=== PATIENT | female | born 1935 | race Caucasian/White ===

== ENCOUNTER 2019-12-15 00:23 | Inpatient (IN) | payer OTHER ==
[~2019-12-15] VITALS: Ht 162.6 cm; Wt 82.1 kg
[2019-12-15] VITALS (33 sets, daily range): BP systolic 91–163; BP diastolic 24–84
[2019-12-15 05:00] LABS: HEMATOCRIT 30.5 % (37.0-47.0); HEMOGLOBIN 9.9 gm/dL (12.0-15.0); MCH 32.2 pg (26.0-34.0); MCHC 32.3 g/dL (28.0-37.0); MCV 99.9 fL (80.0-100.0); RBC 3.06 mil/uL (4.20-5.00); RDW 15.5 % (10.5-14.5); WBC 11.7 thou/uL (4.0-11.0)
[2019-12-15 05:16] LABS: CALCIUM 8.5 mg/dL (8.5-10.1); CREATININE 1.7 mg/dL (0.6-1.0); POTASSIUM 4.6 mmol/L (3.5-5.1)
[2019-12-15 05:21] LABS: ALBUMIN 2.1 g/dL (3.4-5.0); TOTAL BILIRUBIN 0.4 mg/dL (0.2-1.0); TOTAL PROTEIN 6.5 g/dL (6.4-8.2)
--- NOTE | 2019-12-15 07:59 | NUR ---
RECEIVED PT DIRECT ADMIT TO ICU 245. PT LETHARGIC, ABLE TO AWAKEN TO QUESTIONS AND FOLLOW COMMANDS. ORIENTED ONLY TO SELF, AND DENIED ANY PAIN, AFEBRILE, APPEARED TO HAVE CHILLS. BLANKET ON. ST. BP THIS AM TRENDING LOWER-LEVOPHED STARTED TO KEEP MAP >65. GOOD UO-- 2.5L OF FLUID GIVEN AT [place]. ABX GIVEN ORDERED. CONT PLAN OF CARE
--- NOTE | 2019-12-15 09:36 | NUR ---
WOUND CONSULT; BILATERAL LE S/S CONSISTANT WITH CELLULITIS. HOT TO TOUCH, EDMATOUS, ERYTHEMA BILATERALLY. THE PANNOUS/GROIN ARE ESCORIATED AND RED THE RIGHT BUTTOCKS IS A STAGE 2, AND THE COCCYX IS A STAGE 2. SMALL AMOUNT OF SEROUS DRAINAGE TO BOTH. NONE ODOROUS. RECOMMENDATIONS; 1-INTERDRY TO PANNOUS/GROIN 2-RIGHT BUTTOCKS AND COCCYX; LINDSEY BID/PRN RN PRESENT
--- NOTE | 2019-12-15 10:53 | NUR ---
chart review. unable to visit with tereza rt in icu. cm spoke with pt daughter frantz via phone call, she was just arriving to visit. intro to cm and dcp. frantz reported lives at [facility], she was just at [facility] 5-6 weeks ago for similar things. she uses wheel chair. has prn o2 and btx if needed at [facility], she is still able to feed her self. has assistance with bathing and dressing. been to [facility] for wound care. thank you for calling per daughter frantz. will cont following as needed for dc needs.
--- NOTE | 2019-12-15 11:27 | NUR ---
1100 - DAUGHTER VISITED THE PATIENT AND SHE AND THE PATIENT WERE UPDATED AND EDUCATED ON THE PATIENT'S CONDITION AND PLAN OF CARE.
--- NOTE | 2019-12-15 16:05 | NUR ---
ASSUMED CARE AT 0700. AFEBRILE. ADEQUATE UOP. NO BM. LEVOPHED GTT IN PLACE. PATIENT WAS ABLE TO EAT TODAY. DEEP TISSUES INJURIES ON COCCYX AND RIGHT BUTTOCKS WERE VISUALIZED AND TREATED NURSE ON WOUND CARE TEAM. PATIENT PROGRESSING TOWARDS THE PLAN OF CARE.
[2019-12-16] VITALS (36 sets, daily range): BP systolic 65–132; BP diastolic 30–103
[2019-12-16 06:31] LABS: BASOPHILS 0.3 % (0.0-2.0); EOSINOPHILS 3.1 % (0.0-3.0); HEMATOCRIT 26.9 % (37.0-47.0); HEMOGLOBIN 8.9 gm/dL (12.0-15.0); LYMPHOCYTES 18.9 % (24.0-44.0); MCH 32.8 pg (26.0-34.0); MCHC 33.1 g/dL (28.0-37.0); MCV 98.9 fL (80.0-100.0); MONOCYTES 10.1 % (1.0-8.0); PLATELET COUNT 106 thou/uL (150-400); POLYS 67.6 % (36.0-66.0); RBC 2.72 mil/uL (4.20-5.00); WBC 11.9 thou/uL (4.0-11.0)
[2019-12-16 06:36] LABS: CALCIUM 8.7 mg/dL (8.5-10.1); CREATININE 1.4 mg/dL (0.6-1.0); POTASSIUM 4.1 mmol/L (3.5-5.1); TOTAL BILIRUBIN 0.2 mg/dL (0.2-1.0); TOTAL PROTEIN 5.8 g/dL (6.4-8.2)
[2019-12-16] MEDS ORDERED: ASPIRIN EC81 M1 PO (11:43)
[2019-12-16] MEDS ORDERED: ATROVENT HFA14 GM INH (12:02)
[2019-12-16] MEDS ORDERED: LIPITOR 20 MG T20 M1 PO (12:02)
[2019-12-16] MEDS ORDERED: CEPACOL SORE T1 EACH PO (12:03)
[2019-12-16] MEDS ORDERED: DULCOLAX STOOL100 M1 PO ×2 (12:04→12:06)
[2019-12-16] MEDS ORDERED: CELEXA 20 MG TA20 MG PO (12:04)
[2019-12-16] MEDS ORDERED: IRON325 M1 PO (12:07)
[2019-12-16] MEDS ORDERED: ADULT WAL-100 MG/5 M PO (12:09)
[2019-12-16] MEDS ORDERED: LEVEMIR100 UNIT/1 SUBQ (12:09)
[2019-12-16] MEDS ORDERED: MAG-OXIDE400 MG PO (12:11)
[2019-12-16] MEDS ORDERED: NAMENDA XR14 MG PO (12:12)
[2019-12-16] MEDS ORDERED: LEVO-T75 MCG PO (12:12)
[2019-12-16] MEDS ORDERED: MULTI VITAMIN1 EACH PO (12:13)
--- NOTE | 2019-12-16 12:32 | NUR ---
1030- PT GOT UP TO CHAIR WITH ASSISTANCE FROM PT. PT ALERT TO SELF BUT CONFUSED TO TIME PLACE AND SITUATION. PT REQUESTING TO GO HOME AND STATES SHE IS BETTER AND DOES NOT NEED TO BE IN THE HOSPITAL. PT PULLED OFF PIPE SUPERVISOR LEADS AND O2.RN CALLED PT'S DAUGHTER LOURDES AND PHONE WAS BROUGHT INTO PT'S ROOOM SO PT COULD TALK TO HER DAUGHTER. AFTER CALL PT REMAINS CONFUSED. 1130 PT'S DAUGHTER ARRIVED AND IS SITTING AND VISITING WITH PT. PT APPEARS LESS ANXIOUS WITH DAUGHTER PRESENT AND AGREES TO HAVE O2 ON AND PIPE SUPERVISOR LEADS ON. DAUGHTER IS CHAIRSIDE FEEDING PT LUNCH.
[2019-12-16] MEDS ORDERED: BENGAY GREASELE57 GM TOP (13:54)
[2019-12-16] MEDS ORDERED: NOVOLOG100 UNIT/1 SUBQ ×2 (13:55→14:00)
[2019-12-16] MEDS ORDERED: OMEPRAZOLE 20 M20 M1 PO (14:00)
[2019-12-16] MEDS ORDERED: POTASSIUM20 PO (14:02)
[2019-12-16] MEDS ORDERED: OXYBUTYNIN 5 MG5 M2 PO (14:02)
[2019-12-16] MEDS ORDERED: REMERON15 M2 PO (14:05)
[2019-12-16] MEDS ORDERED: PREGABALIN50 MG PO (14:05)
[2019-12-16] MEDS ORDERED: TRAZODONE HCL50 MG PO (14:06)
[2019-12-16] MEDS ORDERED: TYLENOL325 MG PO (14:07)
[2019-12-16] MEDS ORDERED: TRAMADOL 50 MG50 MG PO (14:07)
[2019-12-16] MEDS ORDERED: VITAMIN C500 M1 PO (14:08)
[2019-12-16] MEDS ORDERED: VITAMIN D325 MC1 PO (14:09)
--- NOTE | 2019-12-16 15:05 | NUR ---
FAXED CLINICAL UPDATE TO [facility] RECEIVED CONFIRMATION AND LEFT MSG WITH RUTHIE IN ADM. DP TO FOLLOW.
[2019-12-16 22:38] LABS: URINE BILIRUBIN NEGATIVE (Negative); URINE BLOOD 1+ (Negative); URINE CLARITY SL CLOUDY; URINE COLOR YELLOW; URINE GLUCOSE-RANDOM* NEGATIVE (Negative); URINE KETONES NEGATIVE (Negative); URINE NITRITE-REFLEX NEGATIVE (Negative); URINE PROTEIN (DIPSTICK) NEGATIVE (Negative); URINE SPECIFIC GRAVITY 1.015 (1.005-1.035); URINE UROBILINOGEN 0.2 E.U./dl (0.2-1.0)
--- NOTE | 2019-12-16 23:00 | NUR ---
PT AGITATED AND PICKING AT MONITOR LEADS. TRAZADONE 50 MG GIVEN PER ORDER PT IS NORMALLY OMN THIS MED AT THE [facility].
[2019-12-16 23:33] LABS: SQUAMOUS 0-3 Few /LPF (0-3); URINE LEUKOCYTES-REFLEX 3+ (Negative)
[2019-12-16 23:34] LABS: BACTERIA-REFLEX 1-9 Few /HPF (None Seen); CASTS None Seen /LPF (None Seen); CRYSTALS None Seen /LPF (None Seen); MUCUS 0-3 Light strn/LPF (None Seen); URINE RBC 3-10 Few /HPF (0-2); URINE WBC-REFLEX >25 Many /HPF (0-5); WBC CLUMPS Moderate (None Seen)
[2019-12-17] VITALS (17 sets, daily range): BP systolic 99–132; BP diastolic 41–76
--- NOTE | 2019-12-17 06:00 | NUR ---
PT HAD 2 MOD BROWNB STOOLS TONIGHT
--- NOTE | 2019-12-17 06:00 | NUR ---
PT IS MUCH CALMER NOW AND COOPERATIVE. WANTS A PEPSI. TEMP 99.2 POI 1800 CC UO THIS SHIFT. LEVOPED GTT TITRASTED OFF AT 0001. BATHED WILL CONT TO MONITOR
--- NOTE | 2019-12-17 18:09 | NUR ---
ALERT AND ORIENTED BUT FORGETFUL, VITALS STABLE. UP TO THE CHAIR WITH P.T. AND TOLERATED WELL. TOLERATING DIET W/O NAUSEA. SANDY HOFF'D PER ORDER. ORDERS TO TRANSFER TO [place] RECEIVED AND REPORT CALLED TO IWONA TREVINO ON 4S PATIENT'S DAUGHTER LOURDES NOTIFIED OF ROOM CHANGE VIA PHONE. PATIENT WILL BE TRANSFERRED TO 445.
--- NOTE | 2019-12-17 21:59 | NUR ---
1900 ASSUMED CARE OF PT AFTER REPORT FROM IWONA TREVINO. 2029 PT BACK TO BED WITH 2 ASSIST, STANDS SLOWLY. BASELINE ASSESSMENT COMPLETED, PT PLACED ON CONT PULSE OXIMETRY BECAUSE FORGETFUL AND REMOVES O2, ORIENTED X 2-3 BUT FORGETFUL, CLOSE TO NURSES STATION, FALL PRECAUTIONS IN PLACE. WILL CONTINUE TO MONITOR
[2019-12-18 04:09] VITALS: BP 142/63
[2019-12-18 06:18] LABS: HEMATOCRIT 27.6 % (37.0-47.0); HEMOGLOBIN 9.2 gm/dL (12.0-15.0); MCH 32.6 pg (26.0-34.0); MCHC 33.2 g/dL (28.0-37.0); MCV 98.3 fL (80.0-100.0); RBC 2.81 mil/uL (4.20-5.00); RDW 14.6 % (10.5-14.5); WBC 6.6 thou/uL (4.0-11.0)
[2019-12-18 06:34] LABS: CALCIUM 8.9 mg/dL (8.5-10.1); CREATININE 1.1 mg/dL (0.6-1.0); POTASSIUM 3.5 mmol/L (3.5-5.1)
[2019-12-18 08:16] VITALS: BP 117/75
--- NOTE | 2019-12-18 18:23 | NUR ---
PT CARE ASSUMED AT 0700. A&Ox3. FORGETFUL. DAILY WEIGHT (CHF) PT MEDICALLY STABLE TO DISCHARGE. AWAITING CULTURE& SENSATIVITY TO SWITH IV ANTIBIOTICS TO PO TO RETURN TO SKILLED. URINE (12/18) BLOOD (12/20) CALL . IV PATENT WITH NO REDNESS OR EDEMA. DAUGHTER AT [facility]. 3L O2 ON 2-4L ON HOME OXYGEN. BILATERAL VASCULAR EDEMA. UP WITH ONE ASSIST TO THE RECLINER. LOW AIRLOSS PUMP. FALL PROTOCOL IN PLACE. CALL LIGHT IN REACH WILL CONTINUE TO MONITOR.
[2019-12-18 20:34] VITALS: BP 110/52
--- NOTE | 2019-12-19 04:33 | NUR ---
PATIENT ALERT AND ORIENTED X1-2. SITTING IN CHAIR AT BEGINNING OF SHIFT AND HELPED TO BED WITH TWO MAX ASSIST AND A WALKER PATIENT IS WEAK. BS MONITORED PER ORDER. GIVEN TYLENOL FOR SHOULDER PAIN PER GRANDDAUGHTER WHO WAS AT HER BEDSIDE (EMPLOYEE) FOR A SHORT PERIOD OF TIME. PATIENT HAS PERIODS OF CONFUSION, HOWEVER, COOPERATIVE WITH CARE. 02NC OFF AND ON PER PATIENT. BS MONITORED PER ORDER, NO INSULIN NEEDED AT 2100. INCONTINENT OF MEDIUM BM AND URINE. RESTING QUIETLY AT TIME OF NOTE. WILL MONITOR.
[2019-12-19 08:41] VITALS: BP 138/63
--- NOTE | 2019-12-19 13:11 | NUR ---
Assumed care of pt at 0700. Pt very sleepy this am. 3L O2. Incontinent b&b. Setup for meals. Denies pain. Q2h turn. IV antibiotic infusing. Call light within reach. Fall precuations in place. Will continue to monitor.
[2019-12-19 16:30] VITALS: BP 130/66
[2019-12-19 22:29] VITALS: BP 141/73
--- NOTE | 2019-12-20 03:32 | NUR ---
PATIENT ALERT TO SELF WITH CONFUSION AT TIMES. COOPERATIVE WITH CARE. 02NC 3L, HOWEVER, PATIENT REMOVES FREQUENTLY. BS MONTORED PER ORDER. INCONTINENT OF B/B. BREAKDOWN ON BUTTOCKS, CREAM APPLIED. REDNESS TO FOLD OF PANUS WITH INTERDRY IN PLACE. POSSIBLE D/C IN AM. WILL MONITOR.
[2019-12-20 07:45] VITALS: BP 136/68
[2019-12-20 16:00] VITALS: BP 133/72
--- NOTE | 2019-12-20 16:20 | NUR ---
Assumed care of pt at 0700. Pt alert but forgetful. Denies pain. Up to the chair. Zguard appplied to buttocks area. Q2h turn. Incontinent of b&b. Call light within reach. Family ay bedside. Fall precautions in place. Will continue to monitor.
[2019-12-20 21:25] VITALS: BP 103/56
--- NOTE | 2019-12-21 04:17 | NUR ---
PATIENT ALERT AND ORIENTED TO SELF. CONFUSED AT BEGINNING OF SHIFT, HOWEVER, EASILY REORIENTED. BS MONITORED PER ORDER AND INSULIN GIVEN PER S/S. PATIENT WAS NOT ON 02 DURING THE DAY SHIFT, HOWEVER, REQUIRED 2LNC FOR O2SAT OF 91% INCONTINENT OF URINE X2. POSSIBLE TRANSFER TO [facility]. EDEMA REMAINS TO LOWER EXTREMETIES AND RIGHT WRIST. CREAM PLACED ON BUTTOCK PER ORDER. RESTING QUIETLY. WILL MONITOR.
[2019-12-21 08:02] VITALS: BP 131/58
[2019-12-21] MEDS ORDERED: MONUROL3 GM PO (13:03)
--- NOTE | 2019-12-21 13:54 | NUR ---
WOUND CARE F/U; F/U TODAY RE; LEFT BUTTOCKS AND POSSIBLE DTI. THE DTI IS STABLE THE LEFT BUTTOCKS REMAINS OPEN BUT IMPROVING. THERE IS NO S/S OF INFECTION AND THE PATIENT DENIES PAIN TO THE AREA. RECOMMENDATIONS; CONTINUE CURRENT POC
--- NOTE | 2019-12-21 14:56 | NUR ---
ON-GOING ASSESSMENT: CM REVIEWED CHART. PER ID NOTE PATIENT REMAINS ON IV ANBX AND CURRENTLY ON MERREM PENDING CULTURES. IF POSSIBLE PATIENT MAY NEED TO GO ON FOSFOMYCIN IF FACILITY IS ABLE TO DO THAT. CM FAXED UPDATED CLINICAL TO [facility] AND LEFT VM WITH ADMISSIONS TO CHECK ON ANBX. CM WILL CONTINUE TO FOLLOW TO ASSIST NEEDED. CM ALSO REQUESTED FOR A COVID TEST TO BE ORDERED. AWAITING CALL BACK FROM [facility] AT THIS TIME.
--- NOTE | 2019-12-21 16:14 | NUR ---
FAXED CLINICAL UPDATE TO [facility] RECEIVED CONFIRMATION AND LEFT MSG WITH JOSE ANGEL IN ADM.
--- NOTE | 2019-12-21 16:52 | NUR ---
PT ASSESSED AT START OF SHIFT. PT ALERT BUT FORGETFUL. PLEASANT AND COOPERATIVE W/ CARES. INCONTINENT OF LARGE AMTS OF URINE. EATING AND DRINKING FAIR-NEEDS HELP W/ MEALS. THERAPY IN THIS AFTERNOON. IV ANTIBIOTIC CHANGED. SLEPT OFF AND ON DURING SHIFT. DTR CALLED TO CHECK ON PT FOR UPDATE. AWAITING BLOOD CULTURE SENSITIVITIES.
--- NOTE | 2019-12-22 01:00 | NUR ---
PT IS ALERT TO SELF. CONFUSED AND FORGETFUL. INCONTINENT. REQUIRES HELP TO REPOSITION IN BED THRO THE NOC.AFEBRILE. SWALLOWS MEDS OK. CONTINUES ON IV ABTS.FALL PREC IN PLACE.
[2019-12-22 04:20] VITALS: BP 121/66
--- NOTE | 2019-12-22 11:17 | NUR ---
on-going assessment: cm reviewed cHART AND RECEIVED A CALL BACK FROM JOSE ANGEL AT [facility] WHO REPORTS THEY HAVE FOSFOMYCIN PO FORM IN A THREE PACK THEY COULD PROVIDE PATIENT IF NEEDED. IF PATIENT IS NEEDING IV ANBX AT DISCHARGE THEY REQUEST A PICC. CM STILL AWAITING FINAL RECS FOR IV ANBX PENDING BLOOD CULTURES. CM NOTIFIED BEDSIDE RN. CM WILL CONTINUE TO FOLLOW TO ASSIST NEEDED.
--- NOTE | 2019-12-22 18:20 | NUR ---
PT CARE ASSUMED AT 0700. A&Ox3. CONFUSSION. PT UP TO THE SIDE OF THE BED FOR ALL MEALS. EPISODES OF IMPULSIVENESS. IV PATENT WITH NO REDNESS OR EDEMA. SALINE LOCKED. IV ANTIBIOTICS. AWAITING CLARIFICATION FROM DR. LOBO OF FINAL DECISSION ON ANTIBIOTICS SO PT CAN RETURN TO FACILITY. WOUND CARE COMPLEETE. PT STARTING TO BE IMPULSIVE AT 1700. LETTING PT SIT AT THE EDGE OF THE BED WITH CLOSE OBSERVATION. FALL PROTOCOL IN PLACE. CALL LIGHT IN REACH. WILL CONTINUE TO MONITOR.
[2019-12-22 19:15] VITALS: BP 141/60
[2019-12-23 02:02] VITALS: BP 141/60
--- NOTE | 2019-12-23 02:33 | NUR ---
PT CARE ASSUMED WITH PT SITTING AT THE BED SIDE RELAXING.PT IS ALERT AND ORIENTED.PT IS FORGETFUL.PT IS X1 ASSIST TO BEDSIDE COMMODE.PT IS ACCUCHECK ACHS WITH LOW SSI.IV ACCESS ON LFA.PT IS ON O2 2L NC.FALL PRECAUTIONS IN PLACE.WILL CONTINUE TO MONITOR
[2019-12-23 03:43] VITALS: BP 110/44
[2019-12-23] MEDS ORDERED: MIRALAX17 GM PO (11:35)
[2019-12-23] MEDS ORDERED: PEPCID20 MG PO (11:35)
--- NOTE | 2019-12-23 12:13 | NUR ---
PT CARE ASSUMED AT 0700. A&Ox3. CONFUSED BUT NONIMPULSIVE. PT UP TO THE BEDSIDE COMMODE. IV PATENT WITH NO REDNESS OR EDEMA. WOUND PICTURES TAKEN. IV REMOVED. NO PAIN NOTED. FALL PROTOCOL IN PLACE. CALL LIGHT IN REACH. WILL CONTINUE TO MONITOR.
--- NOTE | 2019-12-23 13:14 | NUR ---
ON-GOING ASSESSMENT: DISCHARGE TO [facility] TODAY. CM REVIEWED CHART. ID LEFT A SCRIPT FOR FOSFOMYCIN ON CHART AND CM FAXED THIS TO [facility] AND LEFT A VM FOR JOSE ANGEL TO CALL CM BACK MICHELE TO SEE IF THEY CAN ACCEPT THE PATIENT ON THIS MEDICATION AND IF SO SHE CAN DISCHARGE BACK TODAY. CM RECEIVED A CALL FROM JOSE ANGEL WHO REPORTS SHE RECEIVED THE SCRIPT AND THEIR PHARMACY DOES HAVE THAT MEDICATION AND THEY CAN PROVIDE THAT TO HER AND SHE CAN DISCHARGE BACK TO [facility] TODAY. CM NOTIFIED PATIENT AND HER GRANDDAUGHTER WHO WAS AT THE BEDSIDE. CM ALSO CONTACTED PATIENTS DAUGHTER LOURDES. CM NOTIFIED BEDSIDE RN AND PROVIDED HER WITH THE NUMBER FOR REPORT. CHART COPY WAS ORDERED AND DIRECTORY COMPILER AWARE. CM FAXED D/C ORDERS TO [facility] WITH NEGATIVE COVID TEST AND CONFIRMED THEY RECEIVED IT. TRANSPORTATION HAS BEEN ARRANGED FOR [phone]. BEDSIDE RN AWARE WELL PATIENTS DAUGHTER. CASE CLOSED.
== END 2019-12-23 16:26 | DRG 871 ==
LOC: ICU 00:23 → 4S 12-17 18:42
PROVIDERS: Nurse Practitioner Family; Specialist; ADMIT Hospitalist; ATTEND Hospitalist
DX: A41.51 Sepsis due to Escherichia coli [E. coli] (principal); R65.21 Severe sepsis with septic shock; L03.116 Cellulitis of left lower limb; N17.9 Acute kidney failure, unspecified; N12 Tubulo-interstitial nephritis, not specified as acute or chronic; E44.0 Moderate protein-calorie malnutrition; I13.0 Hypertensive heart and chronic kidney disease with heart failure and stage 1 through stage 4 chronic kidney disease, or unspecified chronic kidney disease; J44.9 Chronic obstructive pulmonary disease, unspecified; K21.9 Gastro-esophageal reflux disease without esophagitis; I25.10 Atherosclerotic heart disease of native coronary artery without angina pectoris; E66.9 Obesity, unspecified; N18.2 Chronic kidney disease, stage 2 (mild); K59.00 Constipation, unspecified; E03.9 Hypothyroidism, unspecified; E78.5 Hyperlipidemia, unspecified; F32.9 Major depressive disorder, single episode, unspecified; E11.40 Type 2 diabetes mellitus with diabetic neuropathy, unspecified; F41.9 Anxiety disorder, unspecified; G89.4 Chronic pain syndrome; Z96.651 Presence of right artificial knee joint; Z96.641 Presence of right artificial hip joint; E87.5 Hyperkalemia; Z20.828 Contact with and (suspected) exposure to other viral communicable diseases; M79.7 Fibromyalgia; I87.8 Other specified disorders of veins; G47.00 Insomnia, unspecified; E11.22 Type 2 diabetes mellitus with diabetic chronic kidney disease; N32.81 Overactive bladder; D50.9 Iron deficiency anemia, unspecified; I50.9 Heart failure, unspecified; F03.90 Unspecified dementia, unspecified severity, without behavioral disturbance, psychotic disturbance, mood disturbance, and anxiety; Z95.1 Presence of aortocoronary bypass graft; Z68.31 Body mass index [BMI] 31.0-31.9, adult; Z88.6 Allergy status to analgesic agent; Z88.8 Allergy status to other drugs, medicaments and biological substances; Z86.73 Personal history of transient ischemic attack (TIA), and cerebral infarction without residual deficits; Z90.49 Acquired absence of other specified parts of digestive tract; Z82.49 Family history of ischemic heart disease and other diseases of the circulatory system; Z79.82 Long term (current) use of aspirin; Z79.899 Other long term (current) drug therapy
CPT/HCPCS: 10078; 10102

== ENCOUNTER 2019-12-24 17:16 | Inpatient (IN) | payer OTHER ==
[~2019-12-24] VITALS: Ht 162.6 cm; Wt 88.6 kg
[~2019-12-24 17:16] MED LIST: ADULT WAL-100 MG/5 M PO; ASPIRIN EC81 M1 PO; ATROVENT HFA14 GM INH; BENGAY GREASELE57 GM TOP; CELEXA 20 MG TA20 MG PO; CEPACOL SORE T1 EACH PO; DULCOLAX STOOL100 M1 PO; IRON325 M1 PO; LEVEMIR100 UNIT/1 SUBQ; LEVO-T75 MCG PO; LIPITOR 20 MG T20 M1 PO; MAG-OXIDE400 MG PO; MIRALAX17 GM PO; MONUROL3 GM PO; MULTI VITAMIN1 EACH PO; NAMENDA XR14 MG PO; NOVOLOG100 UNIT/1 SUBQ; OMEPRAZOLE 20 M20 M1 PO; OXYBUTYNIN 5 MG5 M2 PO; PEPCID20 MG PO; POTASSIUM20 PO; PREGABALIN50 MG PO; REMERON15 M2 PO; TRAMADOL 50 MG50 MG PO; TRAZODONE HCL50 MG PO; TYLENOL325 MG PO; VITAMIN C500 M1 PO; VITAMIN D325 MC1 PO
[2019-12-24 17:22] VITALS: BP 142/62
[2019-12-24 17:59] LABS: ABSOLUTE NEUTROPHILS 3.4 thou/uL (1.4-8.2); BASOPHILS 0.8 % (0.0-2.0); EOSINOPHILS 4.2 % (0.0-3.0); HEMATOCRIT 32.8 % (37.0-47.0); HEMOGLOBIN 10.8 gm/dL (12.0-15.0); LYMPHOCYTES 41.6 % (24.0-44.0); MCH 32.3 pg (26.0-34.0); MCHC 32.8 g/dL (28.0-37.0); MCV 98.4 fL (80.0-100.0); MONOCYTES 8.4 % (1.0-8.0); PLATELET COUNT 180 thou/uL (150-400); RBC 3.33 mil/uL (4.20-5.00); RDW 15.5 % (10.5-14.5); WBC 7.6 thou/uL (4.0-11.0)
[2019-12-24 18:05] LABS: URINE BILIRUBIN NEGATIVE (Negative); URINE BLOOD NEGATIVE (Negative); URINE CLARITY CLEAR; URINE COLOR YELLOW; URINE GLUCOSE-RANDOM* NEGATIVE (Negative); URINE KETONES NEGATIVE (Negative); URINE NITRITE-REFLEX NEGATIVE (Negative); URINE PROTEIN (DIPSTICK) TRACE (Negative); URINE UROBILINOGEN 0.2 E.U./dl (0.2-1.0)
[2019-12-24 18:13] LABS: URINE LEUKOCYTES-REFLEX 1+ (Negative)
[2019-12-24 18:16] LABS: ANION GAP 8 mmol/L (7-16); BUN 10 mg/dL (7-18); CALCIUM 9.6 mg/dL (8.5-10.1); CHLORIDE 105 mmol/L (98-107); CO2 30 mmol/L (21-32); CREATININE 0.9 mg/dL (0.6-1.0); GLUCOSE 122 mg/dL (74-106); POTASSIUM 3.8 mmol/L (3.5-5.1); SODIUM 143 mmol/L (136-145)
[2019-12-24 18:26] LABS: ALBUMIN 2.5 g/dL (3.4-5.0); DIRECT BILIRUBIN 0.1 mg/dL (<0.1-0.2); LIPASE 33 U/L (73-393); SGOT 106 U/L (15-37); SGPT 41 U/L (30-65); TOTAL BILIRUBIN 0.4 mg/dL (0.2-1.0); TOTAL PROTEIN 7.4 g/dL (6.4-8.2); TROPONIN-I <0.06 ng/mL (<0.06)
[2019-12-24 18:30] LABS: SQUAMOUS 4-10 Moderate /LPF (0-3)
[2019-12-24 18:31] LABS: BACTERIA-REFLEX 1-9 Few /HPF (None Seen); CRYSTALS None Seen /LPF (None Seen); URINE RBC 0-2 Rare /HPF (0-2); URINE WBC-REFLEX 6-15 Few /HPF (0-5)
[2019-12-24 18:32] LABS: HYALINE CASTS 0-3 Few /LPF (None Seen)
--- NOTE | 2019-12-24 19:21 | NUR ---
LOURDES ISAAC - OA, DAUGHTER: [phone] GAVE DAUGHTER UPDATE ON PT STATUS
[2019-12-24 20:00] VITALS: BP 105/42
--- NOTE | 2019-12-24 22:44 | NUR ---
PT BEING ADMITTED TO [facility] 443, REPORT CALLED TO KUSH TREVINO. UPDATED LOURDES THE DPOA AND GAVE HER ROOM NUMBER. PT DROWSY BUT EASILY AROUSABLE , ALERT TO SELF ONLY, VITALS STABLE. IV INTACT, AND FLUIDS INFUSING. PT TRANSFERED BY STRETCHER.
[2019-12-24 22:48] VITALS: BP 105/42
[2019-12-24 23:02] VITALS: BP 138/78
--- NOTE | 2019-12-25 03:22 | NUR ---
Assumed pt's care at about 2300. Pt admitted from ER to rm 443. Report given by Patience PRIVATE DETECTIVE. Pt was lethargic but arousable. Pt was oriented to self. Forgetful. Admission HX and assessment documented. Consent not signed as pt is confused. Will inform day RN to get consent from Dtr who is also DPOA. Geriatric consult called in, answered by [facility] answering service. Pt has wound on her bottom and on left big toe. Pictures taken and placed in the chart. Pt is Q2 turn. Bottom cleaned and zguard applied. SCD's in place. Fall precaution in place. No pt's belongings noted this admission. Call light within reach. Will continue to monitor.
[2019-12-25 03:58] VITALS: BP 108/51
[2019-12-25 06:22] LABS: HEMATOCRIT 31.1 % (37.0-47.0); HEMOGLOBIN 10.3 gm/dL (12.0-15.0); MCH 32.9 pg (26.0-34.0); MCHC 33.1 g/dL (28.0-37.0); MCV 99.2 fL (80.0-100.0); RBC 3.14 mil/uL (4.20-5.00); RDW 15.9 % (10.5-14.5); WBC 6.6 thou/uL (4.0-11.0)
[2019-12-25 06:26] LABS: CALCIUM 9.1 mg/dL (8.5-10.1); CREATININE 0.8 mg/dL (0.6-1.0); POTASSIUM 3.4 mmol/L (3.5-5.1)
--- NOTE | 2019-12-25 07:36 | EKG ---
[facility] [place] [address] ELECTROCARDIOGRAM REPORT Name: JASIEL JULIAN Room #: 443-P ADM IN M.R.#: [id number] Admission: 12/24/19 Attend Phys: Alisha Ferris Discharge: Date of : 35 Report #: [id number] THIS REPORT FOR: cc: Namrata Alcantara MD, Janet MD Lundgren,Jarrett Bay MD [facility] ~ THIS REPORT FOR: //name// [facility] ED Test Date: 2019-12-24 Test Time: 17:31:36 Pat Name: JASIEL JULIAN Department: Room: [facility] Gender: F Staff Development Manager: AM : 1935 Requested By: Jeremiah Duke Order Number: [id number] MD: Jarrett Palacio Measurements Intervals [place] Rate: 76 P: 44 RI: 180 QRS: 24 QRSD: 93 T: 35 QT: 402 QTc: 453 Interpretive Statements Sinus rhythm Atrial premature complex Anteroseptal infarct, age indeterminate No previous ECG available for comparison Electronically Signed On 12-25-2019 7:35:53 CDT by Jarrett Palacio [email or web address] <ELECTRONICALLY SIGNED> By: Jarrett Palacio MD, FACC 12/25/19 0735 1731 173 Jarrett Palacio MD, [facility] /EPI
[2019-12-25 07:45] VITALS: BP 125/58
--- NOTE | 2019-12-25 11:55 | NUR ---
WOUND CONSULT; THE BUTTOCKS AREA REMAINS HEALED. THE LEFT BEG TOE HAS A SCAB THAT IS BLACK AND THERE IS SOME DRAINAGE. THE PATIENT HAS AN INSENSATE TOE. i CLEANSED THE WOUND WITH NORMAL SALINE AND APPLIED XEROFORM GAUZE,KERLIX,TAPE. RECOMMENDATIONS; 1-XEROFORM,GAUZE SECURE WITH TAPE. 2-ZGUARD TO BUTTOCKS DISCUSSED WITH BELINDA
--- NOTE | 2019-12-25 15:02 | NUR ---
ASSESSMENT: CM REVIEWED CHART AND SPOKE WITH ATTENDING. PT ADMITS FROM [facility] WHERE SHE JUST RECENTLY DISCHARGED TO A COUPLE DAYS PRIOR. PT ADMITTED DUE TO AMS. ELIZABETH SPOKE WITH LIASON AT [facility] AND CONFIRMED THEY HAD THE ANTIBIOTIC FOSFOMYCIN THAT PATIENT DISCHARGED ON (ELIZABETH PREVIOUSLY FAXED SCRIPT PRIOR TO DISCHARGE AND CONFIRMED THEY COULD ACCEPT WITH THIS MEDICATION AND [facility] CONFIRMED) AND SHE STATED THEY DID HAVE THAT MEDICATION AND CAN GIVE IT TO PATIENT. SHE REPORTS SHE WILL MAKE SURE HER NURSES ARE AWARE THAT THEY CAN GIVE THIS MEDICATION. PT IS TO HAVE MRI TODAY AND IF CLEAR WILL LIKELY DISCHARGE BACK TO [facility] TOMORROW. ELIZABETH NOTIFIED JOSE ANGEL AT [facility] WHO REPORTS THEY CAN ACCEPT HER AND TO CALL DAVIDSON [phone] THE NURSE AT [facility] TO NOTIFY HIM OF DISCHARGE AND FACILITATE TRANSPORTATION (NOTIFY HIM OF NEED OF OXYGEN DURING TRANSPORT). D/C ORDERS WILL NEED TO BE FAXED TO AND A CHART COPY ORDERED. DAVIDSON THE NURSE AT [facility] WILL THEN ARRANGE TRANSPORTATION THROUGH SECURE TRANSPORT. NOTIFY PATIENTS DAUGHTER LOURDES. SHE IS AWARE AND AGREEABLE WITH DISCHARGE PLAN.
[2019-12-25 16:15] VITALS: BP 149/76
--- NOTE | 2019-12-25 19:42 | NUR ---
PT CARE ASSUMED AT 0700. A&Ox4. PT UP TO THE BEDSIDE COMMODE WITH 1 ASSIST. IV INFILTRATED. NEW IV PLACED R. CHEST. MRI PERFORMED, SEE CHART FOR RESULTS. IV ANTIBIOTICS INFUSING. SALINE LOCKED. PT INTICIPATED TO [facility]. DAUGHTER AT BED SIDE MOST OF THE MORNING. FALL PROTOCOL IN PLACE. CALL LIGHTIN REACH. WILL CONTINUE TO MONITOR.
[2019-12-25 22:42] VITALS: BP 118/50
--- NOTE | 2019-12-26 04:36 | NUR ---
ASSESSMENT COMPLETED. PT IS ALERT AND ORIENTED WITH FORGETFULNESS. SHE IS FORGETFUL AND GETS CONFUSED. DENIES PAIN.VSS. Q2HR TURN PROVIDED. ON PER BASELINE. FALL PREC IN PLACE.
[2019-12-26 08:00] VITALS: BP 127/59
--- NOTE | 2019-12-26 15:02 | NUR ---
DISCHARGE PAPERS REVIEWED WITH PATIENT SIGNED AND COPY IN CHART. PT'S IV ACSESS DCD AND BRIEF CHANGED. TX'S TO RIGHT GREAT TOE AND RIGHT FIRST TOE TX ORDERED. PT HAD SHOWER TODAY. BLOOD SUGARS CHECKED AND S/S ORDERED. PT IS PLEASANT AND COOPERATIVE WITH CARE.
[2019-12-26 16:00] VITALS: BP 134/65
--- NOTE | 2019-12-26 18:48 | NUR ---
PT DISCHARGED AT THIS TIME SECURE TRANSPORT HERE TO CARPET CUTTER PATIENT.PT W/O PAIN OR RESP DISTRESS AT DISCHARGE. ALL BELONGINGS PACKED AND SENT WITH PATIENT.
--- NOTE | 2019-12-26 20:16 | NUR ---
SPOKE WITH LOURDES ISAAC PATIENT'S DAUGHTER AT [phone] TO LET HER KNOW THAT PATIENT WAS BACK AT [facility] IN [place] AND SHE HAD BLOOD SUGAR CHECKED AND S/S INSULIN AND DINNER BEFORE DISCHARGE.DAUGHTER WAS APPRECIATIVE OF CALL AND CARE HER MOTHER RECIEVED.
== END 2019-12-26 18:48 | DRG 70 ==
LOC: ER 17:16 → 4S 19:50 → EROBS 19:50 → 4S 22:48
PROVIDERS: Nurse Practitioner; Nurse Practitioner Family; ADMIT Hospitalist; ATTEND Hospitalist
DX: G93.41 Metabolic encephalopathy (principal); E43 Unspecified severe protein-calorie malnutrition; N39.0 Urinary tract infection, site not specified; K21.9 Gastro-esophageal reflux disease without esophagitis; M79.7 Fibromyalgia; I25.10 Atherosclerotic heart disease of native coronary artery without angina pectoris; E78.5 Hyperlipidemia, unspecified; G30.9 Alzheimer's disease, unspecified; F02.80 Dementia in other diseases classified elsewhere, unspecified severity, without behavioral disturbance, psychotic disturbance, mood disturbance, and anxiety; E11.22 Type 2 diabetes mellitus with diabetic chronic kidney disease; N18.2 Chronic kidney disease, stage 2 (mild); L97.529 Non-pressure chronic ulcer of other part of left foot with unspecified severity; F32.9 Major depressive disorder, single episode, unspecified; E03.9 Hypothyroidism, unspecified; J44.9 Chronic obstructive pulmonary disease, unspecified; R53.1 Weakness; I50.9 Heart failure, unspecified; L30.8 Other specified dermatitis; Z96.641 Presence of right artificial hip joint; Z96.651 Presence of right artificial knee joint; Z95.1 Presence of aortocoronary bypass graft; Z79.82 Long term (current) use of aspirin; Z79.4 Long term (current) use of insulin; Z79.899 Other long term (current) drug therapy; Z88.5 Allergy status to narcotic agent; Z88.8 Allergy status to other drugs, medicaments and biological substances; Z87.891 Personal history of nicotine dependence; Z86.73 Personal history of transient ischemic attack (TIA), and cerebral infarction without residual deficits; Z90.49 Acquired absence of other specified parts of digestive tract; Z90.710 Acquired absence of both cervix and uterus
CPT/HCPCS: 10195

== ENCOUNTER 2020-01-16 06:14 | Inpatient (IN) | payer OTHER ==
[~2020-01-16] VITALS: Ht 162.6 cm; Wt 75.8 kg
[2020-01-16] MEDS ORDERED: LEVOXYL150 MCG PO (09:59)
[2020-01-16] MEDS ORDERED: POTASSIUM20 PO (10:01)
[2020-01-16 11:40] LABS: HEMOGLOBIN 12.4 gm/dL (12.0-15.0); MCH 32.5 pg (26.0-34.0); MCHC 32.7 g/dL (28.0-37.0); MCV 99.2 fL (80.0-100.0); RBC 3.83 mil/uL (4.20-5.00); RDW 15.7 % (10.5-14.5); WBC 12.5 thou/uL (4.0-11.0)
[2020-01-16 11:50] LABS: CALCIUM 9.2 mg/dL (8.5-10.1); CREATININE 1.4 mg/dL (0.6-1.0)
--- NOTE | 2020-01-16 13:00 | EKG ---
[facility] [place] [address] ELECTROCARDIOGRAM REPORT Name: NICOLASAGuerreroJASIEL Claros Room #: [facility]- ADM IN M.R.#: [id number] Admission: 01/16/20 Attend Phys: Johana Gonzalez MD Discharge: Date of : 35 Report #: [id number] THIS REPORT FOR: cc: Physician not on staff Physician not on staff Geovanny Ladd MD ~ THIS REPORT FOR: //name// [facility] Test Date: 2020-01-16 Test Time: 11:54:02 Pat Name: JASIEL JULIAN Department: Room: [facility] Gender: F Mat Making Machine Tender: Zaheer POE : 1935 Requested By: Mauricio Owens Order Number: [id number] MD: Geovanny Ladd Measurements Intervals [place] Rate: 69 P: 36 PA: 182 QRS: 45 QRSD: 147 T: 44 QT: 404 QTc: 433 Interpretive Statements Sinus rhythm Low voltage in the limb leads Early transition Nonspecific ST-T wave change Compared to ECG 12/24/2019 17:31:36 No significant differences Electronically Signed On 01-16-2020 13:00:36 CDT by Geovanny Ladd [email or web address] <ELECTRONICALLY SIGNED> By: Geovanny Ladd MD 01/16/20 1300 1154 1154 Geovanny Ladd MD /EPI
[2020-01-16 14:02] LABS: URINE BILIRUBIN NEGATIVE (Negative); URINE BLOOD TRACE (Negative); URINE CLARITY CLEAR; URINE COLOR YELLOW; URINE GLUCOSE-RANDOM* NEGATIVE (Negative); URINE KETONES NEGATIVE (Negative); URINE LEUKOCYTES NEGATIVE (Negative); URINE NITRITE NEGATIVE (Negative); URINE PROTEIN (DIPSTICK) NEGATIVE (Negative); URINE SPECIFIC GRAVITY 1.015 (1.005-1.035); URINE UROBILINOGEN 0.2 E.U./dl (0.2-1.0)
[2020-01-16 15:01] VITALS: BP 108/44
--- NOTE | 2020-01-16 18:34 | NUR ---
PT ADMITTED FROM [facility], PT IS A&OX2 ( PERSON AND PLACE), PT CAN FOLLOW COMMANDS, PT'S ADMITTED DR AND WOUND CARE HAVE DONE, PT'S COVID PCR TEST HAD DONE AT 1131AM, PT'S VS ARE STABLE AT THIS TIME.
[2020-01-16 20:19] VITALS: BP 101/60
--- NOTE | 2020-01-16 23:57 | NUR ---
PT ALERT PLEASANT TALKATIVE. RESTING IN BED. PT YELLS OUT NURSE FOR HER NEEDS VERSUS USING CALL LIGHT. PT PROVIDED PRN FOR BACK PAIN, WITH RELIEF. LUNGS WITH WHEEZES AND CRACKLES O2 2L. EXT FEMALE CATHETER INTACT. BARRIER CREAM APPLIED TO COCCYX AND SKIN FOLDS. PT HAD POSITIVE BLOOD CULTURES FOR GRAM DOMINIK AND PROVIDER CONTACTED AND ANTIBIOTIC ORDERED AND GIVEN. PT REQUESTS FLUIDS AND PROVIDED. BED ALARM.
--- NOTE | 2020-01-17 01:01 | NUR ---
INFANT NANNY AND PROVIDER NOTIFIED PCR NEGATIVE. LAB RESULT FOUND ON PRINTER NO CALL FROM LAB.
[2020-01-17 04:47] VITALS: BP 109/68
[2020-01-17 05:42] LABS: CALCIUM 9.8 mg/dL (8.5-10.1); CREATININE 1.2 mg/dL (0.6-1.0); POTASSIUM 3.2 mmol/L (3.5-5.1)
[2020-01-17 05:52] LABS: HEMATOCRIT 43.7 % (37.0-47.0); MCH 32.9 pg (26.0-34.0); MCHC 33.1 g/dL (28.0-37.0); MCV 99.3 fL (80.0-100.0); RBC 4.4 mil/uL (4.20-5.00); RDW 16.1 % (10.5-14.5); WBC 8.8 thou/uL (4.0-11.0)
[2020-01-17 06:10] LABS: HEMOGLOBIN 14.5 gm/dL (12.0-15.0)
[2020-01-17 07:44] VITALS: BP 133/72
[2020-01-17 15:20] VITALS: BP 125/60
--- NOTE | 2020-01-17 16:53 | NUR ---
RN ASSUMED PT'S CARE AT 0700AN, PT IS A&OX2 ( PERSON AND PLACE ), PT CAN FOLLOW COMMANDS, PT IS ON O2 2L/MIN/NC, PT'S VS ARE STABLE, RN REPORTED DR, PT POOR EATING AT MEAL TIME, PT'S FIRST COVID TEST IS NEGATIVE, PT HAS SECOND COVID TEST AT 1300PM.
[2020-01-17 19:15] VITALS: BP 124/62
--- NOTE | 2020-01-17 19:45 | NUR ---
SECOND PCR NEGATIVE, PROVIDER NOTIFIED, WILL TELL RECAPPER DURING ROUNDS.
--- NOTE | 2020-01-17 23:22 | NUR ---
PT RESTING IN BED. PT TALKATIVE. PT YELLS OUT FOR NURSE, AND WHEN NURSE RESPONDS PT STATES SHE DOES NOT WANT TO BE ALONE IN ROOM AND SHE WANTS THE DOOR OPEN. PT ASSISTS WITH REPOSITIONING. ZGUARD APPLIED TO COCCYX AND SKIN FOLDS. FEMALE EXT CATH INTACT. COMPLIANT WITH MEDS AND DECLINED SNACK.
--- NOTE | 2020-01-18 00:51 | NUR ---
PT YELLING OUT PLEASE HELP ME AND PT WILL STOP YELLING ONCE STAFF IN ROOM AND WILL ASK THEM TO SIT WITH HER. PT STATED SHE FEELS ANXIOUS AND IS SHAKING ON THE INSIDE. PRN PROVIDED. PT OFFERED FLUIDS, AND TV PROGRAM.
[2020-01-18 03:03] VITALS: BP 103/61
[2020-01-18 03:15] VITALS: BP 126/66
[2020-01-18 06:06] LABS: HEMATOCRIT 42.7 % (37.0-47.0); MCH 32.7 pg (26.0-34.0); MCHC 32.7 g/dL (28.0-37.0); RBC 4.27 mil/uL (4.20-5.00); RDW 15.7 % (10.5-14.5); WBC 9.9 thou/uL (4.0-11.0)
[2020-01-18 06:24] LABS: CALCIUM 10.3 mg/dL (8.5-10.1); CREATININE 1.2 mg/dL (0.6-1.0); POTASSIUM 4.3 mmol/L (3.5-5.1)
--- NOTE | 2020-01-18 06:28 | NUR ---
PT AWAKE ALL NIGHT, FREQUENTLY CALLING OUT FOR NURSE STATING SHE WANTS COMPANY.
[2020-01-18 07:43] VITALS: BP 124/453
--- NOTE | 2020-01-18 10:08 | NUR ---
WOUND CONSULT; THE BILATERAL BUTTOCKS AND SACRUM HAVE S/S OF PRIOR TISSUE INJURY TO THE BILATERAL BUTTOCKS AND SACRUM. CURRENTLY USING A ZINC BASED CREAM. THE PANNOUS SKIN FOLDS AND GROIN SKIN FOLDS HAVE SKIN BREAKDOWN CONSISTANT WITH FUNGAL AND MOISTURE. RECOMMENDATIONS; -CLEANSE WITH (WARM SOAPY WATER) AND APPLY (INTERDRY) LEAVING A TAIL OPEN TO AIR. -APPLY ZGUARD CREAM TO SACRUM/BILATERAL BUTTOCKS. TURN PATIENT Q2H. DISCUSSED WITH BELINDA
--- NOTE | 2020-01-18 12:08 | 2DMMODE ---
[facility] [place] [address] 2 D/M-MODE ECHOCARDIOGRAM Name: JASIEL JULIAN Room #: 351-P ADM IN M.R.#: [id number] Admission: 01/16/20 Attend Phys: Johana Gonzalez MD Discharge: Date of : 35 Report #: [id number] THIS REPORT FOR: cc: Physician not on staff Physician not on staff Geovanny Ladd MD ~ APPROVED REPORT Study performed: 01/18/2020 10:46:19 EXAM: Comprehensive 2D, Doppler, and color-flow Echocardiogram Patient Location: Bedside Room #: 351 Status: routine BSA: 1.81 HR: 88 bpm BP: 124/66 mmHg Rhythm: NSR Other Information Study Quality: Adequate Indications Tachycardia Weakness and elevated troponin. Hx: CABG, CHF, DM, HLD. 2D Dimensions IVSd: 7.42 (7-11mm) LVOT Diam: 19.51 (18-24mm) LVDd: 31.34 mm PWd: 6.12 (7-11mm) LVDs: 22.18 (25-40mm) Aortic Root: 26.84 mm Volumes Left Atrial Volume (Systole) Single Plane 4CH: 33.05 mL Single Plane 2CH: 26.36 mL LA ESV Index: 18.00 mL/m2 Aortic Valve AoV Peak Moo.: 1.07 m/s AO Peak Gr.: 4.56 mmHg LVOT Max P.61 mmHg LVOT Max V: 0.81 m/s ARSENIO Vmax: 2.26 cm2 [facility] [address] [place] [address] 2 D/M-MODE ECHOCARDIOGRAM Name: JASIEL JULIAN Room #: 351-P [facility] IN .R.#: [id number] Admission: 01/16/20 Attend Phys: Sofie Elias Discharge: Date of : 35 Report #: [id number] Mitral Valve E/A Ratio: 0.7 MV Decel. Time: 257.73 ms MV E Max Moo.: 0.79 m/s MV A Moo.: 1.10 m/s MV PHT: 74.74 ms IVRT: 129.18 ms Pulmonary Valve PV Peak Moo.: 1.28 m/s PV Peak Gr.: 6.57 mmHg Pulmonary Vein P Vein S: 0.44 m/s P Vein A: 0.24 m/s P Vein D: 0.35 m/s P Vein A Dur.: 147.6 msec P Vein S/D Ratio: 1.26 Tricuspid Valve TR Peak Moo.: 2.26 m/s RAP Estimate: 5.00 mmHg TR Peak Gr.: 20.35 mmHg PA Pressure: 25.00 mmHg Left Ventricle The left ventricle is normal size. There is normal LV segmental wall motion. There is normal left ventricular wall thickness. The left ventricular systolic function is normal. LVEF is 60-65%. Grade I - abnormal relaxation pattern. Right Ventricle Right ventricle is not well visualized but appears grossly normal in size and function. The right ventricular systolic function is normal. Atria The left atrium size is normal. The right atrium size is normal. Aortic Valve Aortic valve is mildly calcified. No aortic regurgitation is present. There is no aortic valvular stenosis. Mitral Valve Mitral valve leaflets are mildly thickened and calcified. Moderate mitral annular calcification. Mild mitral regurgitation. No evidence of mitral valve stenosis. Tricuspid Valve [facility] [address] [place] [address] 2 D/M-MODE ECHOCARDIOGRAM Name: JASIEL JULIAN Room #: 351-P [facility] IN [facility].#: [id number] Admission: 01/16/20 Attend Phys: Sofie Elias Discharge: Date of : 35 Report #: [id number] The tricuspid valve is normal in structure. Mild tricuspid regurgitation. Estimated PAP 25mmHg. Pulmonic Valve The pulmonary valve is normal in structure. Trace pulmonic regurgitation. Great Vessels The aortic root is normal in size. Descending aorta is not well visualized. IVC is normal in size and collapses >50% with inspiration. Pericardium There is no pericardial effusion. <Conclusion> The left ventricle is normal size. LVEF is 60-65%. Right ventricle is not well visualized but appears grossly normal in size and function. Aortic valve is mildly calcified. Mitral valve leaflets are mildly thickened and calcified. Moderate mitral annular calcification. Mild mitral regurgitation. The tricuspid valve is normal in structure. Mild tricuspid regurgitation. Estimated PAP 25mmHg. The pulmonary valve is normal in structure. Trace pulmonic regurgitation. There is no pericardial effusion. <ELECTRONICALLY SIGNED> By: Geovanny Ladd MD 01/18/201206 06 06 Geovanny Ladd MD /INF
--- NOTE | 2020-01-18 15:02 | NUR ---
INITIAL ASSESSMENT: ANEL reviewed chart due to length of stay. Discussed with nursing and attending physician. Pt was admitted from [facility] due to elevated troponin. Pt placed in Enhanced Isolation to r/o COVID-19. Pt's test is negative. Enhanced Isolation precautions discontinued. Pt is on IV abx. Pt to have stress test/echo. ANEL spoke with pt's dtrRita, via phone. Introduced role of ANEL. Pt is normally wheelchair bound at the facility, but does have a walker to use as needed. Plan is for pt to return to [facility] when medically stable. ANEL spoke with Ana, tool coordinator at [facility] to provide update. development planner to fax clinical info to the facility for review. ANEL is following to assist as needed with discharge planning.
--- NOTE | 2020-01-18 17:06 | NUR ---
FAXED CLINICAL UPDATE TO [facility] RECEIVED CONFIRMATION AND LEFT MSG WITH JOSE ANGEL IN ADM.
--- NOTE | 2020-01-18 19:28 | NUR ---
RECEIVED PT'S CARE AROUND 724; PT. ON BED; SR ON THE MONITOR; DURING ASSESSMENT PT. ALERT TO PERSON, PLACE & TIME; FORGETFUL THROUGH THE DAY; AM MEDICATIONS GIVEN; NO C/O PAIN; THROUGH THE DAY PT. SHOUTED FROM TIME TO TIME "NURSE NURSE HELP ME HELP ME" WHEN ASKED HOW [employer]OCI[employer] CAN HELP ST. "I DO KNOW"; EDUCATED ABOUT CALL LIGHT; ST. UNDERSTANDING; NEEDS TO BE REMAINED; COVID NEGATIVE; OFF OF ISOLATION PER INFECTION DISEASE NURSE; TRIED TO STAND WITHOUT HELP ONE TIME; EDUCATED ABOUT CALLING BEFORE GETTING UP; ST. UNDERSTANDING; COMPLETE BED CHANGED; BED BATH BY OT; ABLE TO REST THROUGH THE AFTERNOON; ASSESSMENT CHARGED; FOLLOWING POC; PASSED ON REPORT;
--- NOTE | 2020-01-18 22:34 | NUR ---
PT AO X3. DENIES PAIN. FORGETFUL. SR ON THE MONITOR. TRANSFERRED TO ROOM 219 AT 2200. PT TRANSFERRED IN STABLE CONDITION.
[2020-01-18 22:35] VITALS: BP 98/49
[2020-01-19 01:59] VITALS: BP 98/49
--- NOTE | 2020-01-19 05:08 | NUR ---
assumed pt care at the change of shift, pt is awake, alert and orientedx2, forgetfull, yells for help at times, sr on the monitor on the monitor, transferred for 3w around 2200, c/o back pain, prn meds given with relief, pt sleeping at this time, no needs at this time, will continue to monitor
[2020-01-19 05:53] VITALS: BP 99/51
[2020-01-19 07:30] VITALS: BP 97/61
[2020-01-19] MEDS ORDERED: LEVOFLOXACIN750 MG PO (09:52)
[2020-01-19 12:35] VITALS: BP 113/55
--- NOTE | 2020-01-19 13:24 | NUR ---
PT DISCHARGING TODAY BACK TO [facility] FAXED DC ORDERS/SUMMARY TO FACILITY SPOKE WITH JOSE ANGEL IN ADM SHE RECEIVED ORDERS AND ARRANGED TRANSPORT BY [facility] FOR 1400. LEFT MSG WITH PT'S DTR OF DC AND TIME OF TRANSPORT. UNIT NOTIFIED AND CHART COPY TO GO WITH PT. RN TO CALL REPORT TO [phone].
--- NOTE | 2020-01-19 13:31 | NUR ---
ASSESSMENTS AND INTERVENTIONS DOCCUMENTED. PT WORKING WITH PATIENT. TRANSPORT TO COMMAND AND CONTROL PATIENT At 1300, REPORT ATTEMPTED TO BE CALLED TO [facility], NO ANSWER, WILL TRY AGAIN.
== END 2020-01-19 13:50 | DRG 871 ==
LOC: 3W 06:14 → 2N 01-18 22:27
PROVIDERS: Hospitalist; ADMIT Hospitalist; ATTEND Hospitalist
DX: A41.9 Sepsis, unspecified organism (principal); I50.33 Acute on chronic diastolic (congestive) heart failure; R50.9 Fever, unspecified; I50.9 Heart failure, unspecified; N18.2 Chronic kidney disease, stage 2 (mild); E11.22 Type 2 diabetes mellitus with diabetic chronic kidney disease; G30.9 Alzheimer's disease, unspecified; F02.80 Dementia in other diseases classified elsewhere, unspecified severity, without behavioral disturbance, psychotic disturbance, mood disturbance, and anxiety; E11.40 Type 2 diabetes mellitus with diabetic neuropathy, unspecified; E03.9 Hypothyroidism, unspecified; E78.5 Hyperlipidemia, unspecified; F41.9 Anxiety disorder, unspecified; G89.4 Chronic pain syndrome; Z87.440 Personal history of urinary (tract) infections; J44.9 Chronic obstructive pulmonary disease, unspecified; Z87.01 Personal history of pneumonia (recurrent); K21.9 Gastro-esophageal reflux disease without esophagitis; M79.7 Fibromyalgia; I25.10 Atherosclerotic heart disease of native coronary artery without angina pectoris; E66.9 Obesity, unspecified; Z96.651 Presence of right artificial knee joint; Z96.641 Presence of right artificial hip joint; Z20.828 Contact with and (suspected) exposure to other viral communicable diseases; E87.6 Hypokalemia; Z88.1 Allergy status to other antibiotic agents; Z95.1 Presence of aortocoronary bypass graft; Z90.89 Acquired absence of other organs; Z90.49 Acquired absence of other specified parts of digestive tract; Z90.710 Acquired absence of both cervix and uterus; Z87.891 Personal history of nicotine dependence; Z68.28 Body mass index [BMI] 28.0-28.9, adult; Z88.5 Allergy status to narcotic agent; Z88.8 Allergy status to other drugs, medicaments and biological substances; Z79.899 Other long term (current) drug therapy; Z79.82 Long term (current) use of aspirin; Z79.4 Long term (current) use of insulin
CPT/HCPCS: 10081; 10879